=== PATIENT | male | born 1955 | race Caucasian/White ===

== ENCOUNTER → 2017-10-04 | Day surgery (SDC) | payer BC ==
[~2017-10-04] MED LIST: FENTANYL CITRATE/PF 100MCG/2 ML INJ ONE; LIDOCAINE HCL 2% LOCAL INJ 5 ML SDV VIAL INJ ONE; MIDAZOLAM HCL 2 MG/2 ML VIAL ONE; PROPOFOL IV EMULSION 10 MG/ML 50 ML VIAL ONE
--- OUTSIDE RECORDS SUMMARY | 2017-10-04 08:44 | XMS REPORT ---
Author Author [facility] Address Unknown Phone Unavailable Care Team Providers Care Educational Interpreter Name Role Phone Unavailable Unavailable Problems This patient has no known problems. Allergies, Adverse Reactions, Alerts This patient has no known allergies or adverse reactions. Medications This patient has no known medications. Results Test Description Test Time Test Comments Text Results Atomic Results Result Comments MRI KNEE JNT LT WO Addendum created at 06/20/2017 10:48:05 AM:Case was reviewed again. Specifically no fibular head fracture identified. Lateral stabilizers intact.Addendum by: Simón Dominique [facility] [place]: M25.562 Pain in left kneeMODALITY: Avanto 1.5 Gisel 18 channel MRITECHNIQUE: Multiplanar multisequence MRI of the left knee was performed.IMPRESSION:1. 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 No intrinsic ligament or meniscal tears.3. Trace joint effusion and Melendez s cyst.FINDINGS:COMPARISON: noneMENISCI: Medial and lateral menisci are intact. Increased signal within the medial meniscus noted without contact to an articular surface.CRUCIATE LIGAMENTS: Anterior and posterior cruciate ligaments are intact.COLLATERAL LIGAMENTS: Medial and lateral collateral ligaments are intact.OSSEOUS STRUCTURES AND CARTILAGINOUS SURFACES: No fractures or destructive osseous lesions are detected. Marrow signal is unremarkable. High-grade chondral lesion in the medial or lateral compartment is not seen.PATELLOFEMORAL JOINT: Alignment normal. Retinaculum intact. 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 Grade 2/three chondromalacia with underlying cystic changes lateral patellar facet.Extensor mechanism intact.MISCELLANEOUS FINDINGS : Small joint effusion. Trace Melendez s cyst.
== END | disposition home or self-care (01) ==
LOC: ENDO 08:42
PROVIDERS: ATTEND Internal Medicine Gastroenterology
DX: Z12.11 Encounter for screening for malignant neoplasm of colon (principal); D12.2 Benign neoplasm of ascending colon; D12.3 Benign neoplasm of transverse colon; K64.8 Other hemorrhoids; Z68.41 Body mass index [BMI] 40.0-44.9, adult; Z87.891 Personal history of nicotine dependence
CPT/HCPCS: 45380; 45384; 93005; J2001; J2250; 45378